=== PATIENT | female | born 1975 ===

== ENCOUNTER 2016-08-06 21:50 | Emergency (ER) | payer OTHER ==
[2016-08-06 21:50] VITALS: BMI 29.0
[2016-08-06 22:01] VITALS: O2SAT 99
[2016-08-06] MEDS ORDERED: DiphenhydrAMINE 50 mg/ml Inj ONE (22:12)
[2016-08-06] MEDS ORDERED: DiphenhydrAMINE 50 mg/ml Inj IVP STA (22:12)
[2016-08-06] MEDS ORDERED: Sodium Chloride 0.9% 1,000 ML IV ONE (22:12)
--- NOTE | 2016-08-06 22:12 | C.PDOC ---
History Of Present Illness Patient presents to the ED with complaints of sudden onset of shortness of breath after eating [employer] with swelling to the face and lips. Patient denies fever, chills, nausea, vomiting. Patient denies any other complaints at this time. Time Seen by Provider: 08/06/16 22:11 Chief Complaint (Nursing): Shortness Of Breath History Per: Patient History/Exam Limitations: no limitations Onset/Duration Of Symptoms: Hrs Current Symptoms Are (Timing): Still Present Severity: Mild Pain Scale Rating Of: 4 Associated Symptoms: denies: Fever, Chills Recent travel outside of the [place]: No Past Medical History Reviewed: Historical Data, Nursing Documentation, Vital Signs Vital Signs: Last Vital Signs Temp 98.0 F 08/06/16 21:57 Pulse 107 H 08/06/16 21:57 Resp 22 08/06/16 22:10 BP 133/87 08/06/16 21:57 Pulse Ox 99 08/06/16 22:24 Family History: States: No Known Family Hx - Social History Hx Alcohol Use: No Hx Substance Use: No Review Of Systems Constitutional: Negative for: Fever, Chills, Sweats Respiratory: Positive for: Shortness of Breath. Negative for: Cough Gastrointestinal: Negative for: Vomiting, Abdominal Pain, Diarrhea Physical Exam - Physical Exam Appears: Non-toxic, No Acute Distress Skin: Warm, Dry, Other (swelling to face ) Oral Mucosa: Moist Tongue: No Swelling Lips: Swelling Neck: Supple Cardiovascular: Rhythm Regular Respiratory: No Rales, No Rhonchi, No Stridor, No Wheezing Gastrointestinal/Abdominal: Soft, No Tenderness, No Distention, No Guarding, No Rebound Extremity: Normal ROM, No Tenderness Neurological/Psych: Oriented x3 ED Course And Treatment O2 Sat by Pulse Oximetry: 99 Pulse Ox Interpretation: Normal Progress Note: 11:20 speaking in complete sentences., Feels fine wants to go home. No more swelling Reevaluation Time: 23:20 Reassessment Condition: Improved Critical Care Time - Critical Care Note Total Time (in mins): 30 Documented critical care: time excludes all time spent performing seperately billable procedures. Medical Decision Making Medical Decision Making: Upon provider reevaluation patient is feeling better, is medically stable, and requires no further treatment in the ED at this time. Patient will be discharged home with Rx for prednisone . Counseling was provided and all questions were answered regarding diagnosis and need for follow up with the referred clinic. There is agreement to discharge plan. Return if symptoms persist or worsen. Disposition Counseled Patient/Family Regarding: Studies Performed, Diagnosis, Need For Followup, Rx Given - Disposition Referrals: [facility] [Outside] Disposition: HOME/ ROUTINE Disposition Time: 22:12 Condition: FAIR Additional Instructions: Please return if symptoms recur. also use benadryl, pepcid and claritin Prescriptions: Prednisone [Deltasone] 20 mg PO DAILY #5 tablet Epinephrine [Epipen] 0.3 mg IJ ONCE PRN #1 [email or web address] PRN Reason: Anaphylaxis Instructions: Allergies (ED), General Allergic Reaction (ED) Print Language: ESTONIAN - Clinical Impression Clinical Impression: Allergic reaction - Scribe Statement The provider has reviewed the documentation as recorded by the Scribconcha Melchor All medical record entries made by the Scribe were at my direction and personally dictated by me. I have reviewed the chart and agree that the record accurately reflects my personal performance of the history, physical exam, medical decision making, and the department course for this patient. I have also personally directed, reviewed, and agree with the discharge instructions and disposition.
[2016-08-06 23:35] VITALS: BP 128/82; PULSE 88; RESP 18; TEMP 98.8
== END 2016-08-06 23:35 | disposition home or self-care (01) ==
LOC: C.ER 21:50
DX: T78.1XXA Other adverse food reactions, not elsewhere classified, initial encounter (principal); R22.0 Localized swelling, mass and lump, head; X58.XXXA Exposure to other specified factors, initial encounter
CPT/HCPCS: 96361; 96374; 96375; 99285; J1200; J2930; J7040